=== PATIENT | male | born 1980 | race Caucasian/White ===

== ENCOUNTER 2021-08-21 16:04 | Emergency (ER) | payer SELFPAY ==
[~2021-08-21] VITALS: Ht 170.2 cm; Wt 104.3 kg
[2021-08-21 16:05] VITALS: BP_SYST 197
[2021-08-21] MEDS ORDERED: NACL 0.9% 1,000 ML IV ONE (16:15)
[2021-08-21] MEDS ORDERED: hydrALAZINE HCL 20 MG/ML VIAL IVP ONE (16:15)
[2021-08-21] MEDS ORDERED: ENALAPRILAT DIHYDRATE 1.25 MG/ML VIAL IVP ONE (16:15)
[2021-08-21] MEDS ORDERED: ED NON STOCK ORDER 1 EA MISC IV ONE (17:00)
[2021-08-21] MEDS ORDERED: CASIRIVIMAB 600 MG, IMDEVIMAB 600 MG in NS 250 ML IV ONE (17:00)
[2021-08-21 17:17] LABS: BASOPHILS % (AUTO) 0.2 % (0.0-2.0); EOSINOPHILS % (AUTO) 0.2 % (0.0-4.0); HEMOGLOBIN 16.9 g/dL (14.0-18.0); MONOCYTES # (AUTO) 0.9 K/uL (0.0-1.0); WHITE BLOOD COUNT (AUTO) 7.6 K/uL (4.8-10.8)
[2021-08-21 17:33] LABS: MEAN CORPUSCULAR HGB CONC 36 % (32-36); MEAN CORPUSCULAR VOLUME 91 fL (79.0-98.0)
[2021-08-21 17:34] LABS: HEMATOCRIT 47.5 % (36-54); RED BLOOD CELL COUNT(AUTO) 5.23 MIL/uL (4.2-6.2)
[2021-08-21 17:35] LABS: MEAN CORPUSCULAR HEMOGLOBIN 32 pg (27-31); NEUTROPHILS % (AUTO) 70.8 % (40.0-70.0); PLATELET COUNT (AUTO) 166 K/uL (130-430); RED CELL DISTRIBUTION WIDTH 12.4 % (9.0-15.0)
[2021-08-21 17:36] LABS: LYMPHOCYTES # (AUTO) 1.3 K/uL (1.0-5.5); LYMPHOCYTES % (AUTO) 16.5 % (20.5-51.5); MONOCYTES % (AUTO) 12.3 % (1.7-9.3); NEUTROPHILS # (AUTO) 5.4 K/uL (1.8-7.7)
[2021-08-21 17:46] LABS: ALBUMIN 4.7 g/dL (3.4-4.8); CALCIUM 9.5 mg/dL (8.4-11.0); CREATININE 1.14 mg/dL (0.55-1.30); TOTAL BILIRUBIN 0.8 mg/dL (0.0-1.0)
[2021-08-21 17:52] LABS: POTASSIUM 2.9 mmol/L (3.5-5.1)
[2021-08-21] MEDS ORDERED: DEXAMETHASONE SOD PHOSPHATE 4 MG/ML VIAL IVP ONE (18:15)
[2021-08-21] MEDS ORDERED: CHOLECALCIFEROL (VITAMIN D3) 2,000 UNIT TABLET PO ONE (18:15)
[2021-08-21] MEDS ORDERED: IVERMECTIN 3 MG TABLET PO ONE (18:15)
[2021-08-21] MEDS ORDERED: KCL 20 mEq in 100 mL (PREMIX) 100 ML IV ONE (18:15)
[2021-08-21] MEDS ORDERED: hydrALAZINE HCL 20 MG/ML VIAL ONE (18:53)
[2021-08-21] MEDS ORDERED: ONDANSETRON HCL 4 MG/2 ML VIAL IVP ONE (19:15)
[2021-08-21] MEDS ORDERED: DEXA4TAB67 PO (21:04)
[2021-08-21] MEDS ORDERED: LISI20TA30 PO (21:04)
[2021-08-21] MEDS ORDERED: ZINC50TA69 PO (21:04)
[2021-08-21] MEDS ORDERED: VITD2000 PO (21:04)
[2021-08-21 21:50] VITALS: BP_SYST 153
== END 2021-08-21 21:50 | disposition home or self-care (01) ==
LOC: SED 16:04
DX: U07.1 COVID-19 (principal); I10 Essential (primary) hypertension
CPT/HCPCS: 36415; 71045; 80053; 83880; 84484; 85025; 85379; 87426; 96361; 96365; 96375; 99291; J0360; J1100; J2405; J3480; J7030; J7050; M0243; Q0243